=== PATIENT | male | born 1945 | race Caucasian/White ===

== ENCOUNTER 2019-09-17 15:00 | Inpatient (IN) ==
[2019-09-17 16:06] LABS: Alanine Aminotransferase 9 U/L (16-61); Albumin 3.1 G/DL (3.4-5.0); Alkaline Phosphatase 79 U/L (45-117); Aspartate Amino Transferase 10 U/L (0-37); Blood Urea Nitrogen 23 MG/DL (7-18); Calcium 8.6 MG/DL (8.5-10.1); Estimated Glom Filtration Rate 52 ML/MIN; Glucose 108 MG/DL (74-106); Osmolality,Calculated 283.4 MOS/KG (273-304); Total Protein 6.7 G/DL (6.4-8.3); Troponin I < 0.015 NG/ML (0.00-0.045)
[2019-09-17 16:10] LABS: Basophils % 0.4 % (0.0-0.8); Eosinophils # 0.2 10*3/uL (0.0-0.87); Eosinophils % 2.4 % (0.00-10.9); Hematocrit 51.9 VOL% (42.0-52.0); Hemoglobin 13.5 GM/DL (14.0-18.0); Immature Granulocytes % 0.4 %; Immature Granulocytes Absolute 0.04 #; Lymphocytes # 0.7 10*3/uL (1.4-4.0); Mean Corpuscular Volume 81.1 FL (87-102); Mean Platelet Volume 10.7 FL (9.6-12.0); Monocytes % 8.2 % (1.7-12.7); Neutrophils % 81.6 % (38.7-73.9); Platelet Count 168 T/CUMM (130-400)
[2019-09-17] MEDS ORDERED: ONDANSETRON 4 MG/2 ML VIAL IV STA (16:27)
[2019-09-17] MEDS ORDERED: methylPREDNISolone SOD SUC 125 MG/2 ML VIAL IV STA (16:27)
[2019-09-17] MEDS ORDERED: FUROSEMIDE 100 MG/10 ML VIAL IV STA (16:27)
[2019-09-17] MEDS ORDERED: ALBUTEROL NEB SOLN 5 MG/ML 20 ML/BOTTLE RESP TX SCH (16:30)
[2019-09-17] MEDS ORDERED: ACETAMINOPHEN 325 MG TABLET PO PRN (17:23)
[2019-09-17] MEDS ORDERED: MAGNESIUM SULF RIDER 4 GM in PREMIX 1 EACH IV PRN (17:23)
[2019-09-17] MEDS ORDERED: MAGNESIUM SULF RIDER 2 GM in PREMIX 1 EACH IV PRN (17:23)
[2019-09-17] MEDS ORDERED: ONDANSETRON 4 MG/2 ML VIAL IV PRN (17:23)
[2019-09-17] MEDS ORDERED: ALBUTEROL 1.25 MG/3 ML NEB RESP TX PRN (17:27)
[2019-09-17 17:33] LABS: Apearance,Urine CLEAR (Clear); Bilirubin,Urine Negative (Negative); Blood, Urine Negative (Negative); Glucose,Urine (UA) Negative (Negative); Hyaline Casts,Urine 11 /LPF (0-3); Ketones,Urine Negative (Negative); Mucus,Urine Occasional /LPF (Occasional); Nitrite,Urine Negative (Negative); Protein,Urine Negative; Urine Color Yellow (Yellow); Urine Specific Gravity 1.009 (1.001-1.035); Urine Urobilinogen < 2.0 EU/DL (0.2-1.0)
[2019-09-17] MEDS ORDERED: DEXTROSE 10% 250 ML BAG IV PRN (18:36)
[2019-09-17] MEDS ORDERED: GLUCAGON 1 MG VIAL IM PRN (18:36)
[2019-09-17] MEDS: ALBUTEROL/IPRATROPIUM 3 ML NEB RESP TX SCH (20:03)
[2019-09-17] MEDS: cefTRIAXone 1,000 MG in SYRINGE 1 EACH IV SCH (20:54)
[2019-09-17] MEDS: INSULIN REGULAR 100 UNIT/ML SUBCUT SCH (20:55)
[2019-09-17] MEDS: ENOXAPARIN 40 MG/0.4 ML SYRINGE SUBCUT SCH (20:55)
[2019-09-18 07:06] LABS: Basophils % 0.1 % (0.0-0.8); Hematocrit 48.4 VOL% (42.0-52.0); Hemoglobin 12.7 GM/DL (14.0-18.0); Immature Granulocytes % 0.7 %; Immature Granulocytes Absolute 0.06 #; Lymphocytes # 0.3 10*3/uL (1.4-4.0); Lymphocytes % 3.9 % (21.2-54.2); Mean Corpuscular HGB Conc 26.2 GM/DL (32-36); Mean Corpuscular Volume 80.7 FL (87-102); Mean Platelet Volume 11.3 FL (9.6-12.0); Monocytes % 2.9 % (1.7-12.7); NRBC # 0.03 10*3/uL; Neutrophils % 92.4 % (38.7-73.9); Platelet Count 140 T/CUMM (130-400); Red Cell Distribution Width 18.6 % (9.3-17.3); White Blood Count 8.4 T/CUMM (4-12)
[2019-09-18 07:09] LABS: Bilirubin,Total 0.8 MG/DL (0.2-1.0); Calcium 8.5 MG/DL (8.5-10.1); Osmolality,Calculated 283.8 MOS/KG (273-304); Total Protein 6.5 G/DL (6.4-8.3)
[2019-09-18 07:15] LABS: Band Neutrophils 1 % (0-10); Hypochromasia 2+; Lymphocytes 1 % (20-55); Microcytosis 1+; Segmented Neutrophils 92 % (50-85); Total Cells Counted 100
[2019-09-18 07:16] LABS: Anisocytosis 1+; Ovalocytes Few; Platelet Estimate Adequate; Target Cells Slight
[2019-09-18] MEDS: ALBUTEROL/IPRATROPIUM 3 ML NEB RESP TX SCH ×5 (07:33→18:30)
[2019-09-18] MEDS ORDERED: NON-FORMULARY MEDICATION (Albuterol Sulfate [Ventolin Hfa] 2 PUFF) INH PRN (08:33)
[2019-09-18] MEDS: INSULIN REGULAR 100 UNIT/ML SUBCUT SCH ×4 (08:58→22:35)
[2019-09-18] MEDS: predniSONE 20 MG TABLET PO SCH (08:59)
[2019-09-18] MEDS: PANTOPRAZOLE 40 MG TABLET PO SCH (08:59)
[2019-09-18] MEDS ORDERED: NON-FORMULARY MEDICATION (Pantoprazole [Protonix] 40 MG) PO SCH (09:00)
[2019-09-18] MEDS: FUROSEMIDE 40 MG/4 ML VIAL IV SCH ×2 (09:01→17:49)
[2019-09-18 09:22] LABS: Risk Ratio 3.24; VLDL CHOLESTEROL 22.2 MG/DL
[2019-09-18] MEDS: ASPIRIN EC 81 MG TABLET PO SCH (10:13)
[2019-09-18] MEDS: MONTELUKAST 10 MG TABLET PO SCH (10:13)
[2019-09-18] MEDS: buPROPion 75 MG TABLET PO SCH ×2 (10:13→21:46)
[2019-09-18] MEDS: captopriL 25 MG TABLET PO SCH ×2 (12:27→21:42)
[2019-09-18] MEDS: NABUMETONE 500 MG TABLET PO SCH ×2 (12:27→21:44)
[2019-09-18] MEDS: CLOTRIMAZOLE 1% CREAM 15 GM TUBE TOP SCH ×4 (12:28→22:35)
[2019-09-18] MEDS: FOLIC ACID 1 MG TABLET PO SCH (13:42)
[2019-09-18] MEDS: carvediloL 12.5 MG TABLET PO SCH (17:52)
[2019-09-18] MEDS: ARFORMOTEROL 15 MCG/2 ML NEB RESP TX SCH (18:30)
[2019-09-18] MEDS ORDERED: INSULIN GLARGINE 100 UNIT/ML SUBCUT SCH (21:00)
[2019-09-18] MEDS: cefTRIAXone 1,000 MG in SYRINGE 1 EACH IV SCH (21:45)
[2019-09-18] MEDS: ENOXAPARIN 40 MG/0.4 ML SYRINGE SUBCUT SCH (21:45)
[2019-09-19] MEDS ORDERED: LEVOTHYROXINE 75 MCG TABLET PO SCH (06:30)
[2019-09-19] MEDS: ARFORMOTEROL 15 MCG/2 ML NEB RESP TX SCH (07:11)
[2019-09-19] MEDS: ALBUTEROL/IPRATROPIUM 3 ML NEB RESP TX SCH ×3 (07:11→12:49)
[2019-09-19] MEDS: INSULIN REGULAR 100 UNIT/ML SUBCUT SCH ×2 (08:12→11:37)
[2019-09-19] MEDS: FUROSEMIDE 40 MG/4 ML VIAL IV SCH (08:40)
[2019-09-19] MEDS: MONTELUKAST 10 MG TABLET PO SCH (08:40)
[2019-09-19] MEDS: predniSONE 20 MG TABLET PO SCH (08:40)
[2019-09-19] MEDS: carvediloL 12.5 MG TABLET PO SCH (08:40)
[2019-09-19] MEDS: ASPIRIN EC 81 MG TABLET PO SCH (08:40)
[2019-09-19] MEDS: buPROPion 75 MG TABLET PO SCH (08:40)
[2019-09-19] MEDS: PANTOPRAZOLE 40 MG TABLET PO SCH (08:40)
[2019-09-19] MEDS: FOLIC ACID 1 MG TABLET PO SCH (08:40)
[2019-09-19] MEDS: NABUMETONE 500 MG TABLET PO SCH (08:43)
[2019-09-19] MEDS: CLOTRIMAZOLE 1% CREAM 15 GM TUBE TOP SCH (08:43)
[2019-09-19] MEDS: captopriL 25 MG TABLET PO SCH (08:43)
[2019-09-19] MEDS ORDERED: ATORVASTATIN 10 MG TABLET PO SCH (09:00)
[2019-09-19 09:42] LABS: Basophils # 0.1 10*3/uL (0.0-0.2); Basophils % 0.6 % (0.0-0.8); Eosinophils # 0.1 10*3/uL (0.0-0.87); Eosinophils % 0.9 % (0.00-10.9); Hemoglobin 12.1 GM/DL (14.0-18.0); Immature Granulocytes % 0.6 %; Immature Granulocytes Absolute 0.05 #; Lymphocytes # 0.7 10*3/uL (1.4-4.0); Mean Corpuscular HGB Conc 25.7 GM/DL (32-36); Mean Corpuscular Volume 81.7 FL (87-102); Mean Platelet Volume 10.8 FL (9.6-12.0); Monocytes % 10.6 % (1.7-12.7); Neutrophils % 79.3 % (38.7-73.9); Platelet Count 140 T/CUMM (130-400); Red Blood Count 5.75 MC/CUMM (3.8-5.5); Red Cell Distribution Width 18.1 % (9.3-17.3); White Blood Count 8.1 T/CUMM (4-12)
[2019-09-19 09:43] LABS: Calcium 8.7 MG/DL (8.5-10.1); Osmolality,Calculated 288.5 MOS/KG (273-304)
[2019-09-19 09:59] LABS: Anisocytosis Slight; Hypochromasia Slight; Macrocytosis Slight; Platelet Estimate Adequate
[2019-09-19 12:05] VITALS: BP 174/87
== END 2019-09-19 16:30 | disposition home or self-care (01) | DRG 291 ==
LOC: N.ED 15:00 → SUATTDRO 17:23 → N.EDINP 17:23 → N.2E 18:59
PROVIDERS: ADMIT Internal Medicine; ATTEND Family Medicine

== ENCOUNTER 2019-11-27 09:44 | Inpatient (IN) ==
[2019-11-27] MEDS ORDERED: FUROSEMIDE 100 MG/10 ML VIAL IV STA (09:58)
[2019-11-27 10:45] LABS: INR 1.3; PT Patient Result 13.6 SECS (9.8-11.9); Partial Thromboplastin Time 32.8 SECS (23.9-33.8)
[2019-11-27 10:56] LABS: Basophils # 0.1 10*3/uL (0.0-0.2); Basophils % 0.6 % (0.0-0.8); Eosinophils # 0.3 10*3/uL (0.0-0.87); Hematocrit 48.5 VOL% (42.0-52.0); Hemoglobin 12.4 GM/DL (14.0-18.0); Immature Granulocytes % 0.4 %; Immature Granulocytes Absolute 0.04 #; Lymphocytes # 0.7 10*3/uL (1.4-4.0); Mean Corpuscular HGB Conc 25.6 GM/DL (32-36); Mean Corpuscular Volume 80.7 FL (87-102); Mean Platelet Volume 11.1 FL (9.6-12.0); Monocytes % 10.4 % (1.7-12.7); Neutrophils % 78.6 % (38.7-73.9); Platelet Count 146 T/CUMM (130-400); Red Blood Count 6.01 MC/CUMM (3.8-5.5); Red Cell Distribution Width 19.8 % (9.3-17.3); White Blood Count 10.3 T/CUMM (4-12)
[2019-11-27 10:59] LABS: Apearance,Urine CLEAR (Clear); Bilirubin,Urine Negative (Negative); Blood, Urine Negative (Negative); Glucose,Urine (UA) Negative (Negative); Hyaline Casts,Urine 8 /LPF (0-3); Ketones,Urine Negative (Negative); Mucus,Urine Occasional /LPF (Occasional); Nitrite,Urine Negative (Negative); Protein,Urine 30 MG/DL; Squamous Epithelial Cell,Urine Occasional /HPF (0-10); Urine Color Yellow (Yellow); Urine Specific Gravity 1.013 (1.001-1.035); WBC,Urine <1 /HPF (0-6)
[2019-11-27 11:00] LABS: Albumin 3.1 G/DL (3.4-5.0); Bilirubin,Total 0.8 MG/DL (0.2-1.0); Calcium 8.4 MG/DL (8.5-10.1); Osmolality,Calculated 283.1 MOS/KG (273-304); Total Protein 5.9 G/DL (6.4-8.3)
[2019-11-27 11:30] LABS: Hypochromasia 1+
[2019-11-27 11:31] LABS: Platelet Estimate Adequate
[2019-11-27] MEDS ORDERED: DEXTROSE 50% 25 GM/50 ML VIAL IV STA (11:46)
[2019-11-27 11:55] LABS: ABG Base Excess 10.3 MMOL/L (-2.5-2.5); ABG HCO3 39.9 MMOL/L (20-26); ABG Oxygen Saturation 91.2 % (95-100); ABG PH 7.306 (7.35-7.45); ABG PO2 71.2 MM HG (80-95); ABG TCO2 42.5 MMOL/L (23-27); Allen Test Positive
[2019-11-27 11:57] LABS: ABG PCO2 81.9 MM HG (35-48)
[2019-11-27] MEDS ORDERED: DEXTROSE 50% 25 GM/50 ML SYRINGE IV ONE (12:36)
[2019-11-27] MEDS: HYDROXYCHLOROQUINE 200 MG TABLET PO SCH (12:55)
[2019-11-27] MEDS ORDERED: DEXTROSE 50% 25 GM/50 ML VIAL IV PRN (13:08)
[2019-11-27] MEDS ORDERED: GLUCAGON 1 MG VIAL IM PRN (13:08)
[2019-11-27] MEDS ORDERED: LACTULOSE 20 GM/30 ML UDCUP PO PRN (13:25)
[2019-11-27] MEDS ORDERED: DOCUSATE SODIUM 100 MG CAPSULE PO PRN (13:25)
[2019-11-27] MEDS ORDERED: DEXTROSE 10% 250 ML BAG IV PRN (13:41)
[2019-11-27] MEDS ORDERED: Albuterol Sulfate [Ventolin Hfa] 2 PUFF INH PRN (14:01)
[2019-11-27] MEDS: ENOXAPARIN 40 MG/0.4 ML SYRINGE SUBCUT SCH (16:00)
[2019-11-27] MEDS: FUROSEMIDE 40 MG/4 ML VIAL IV SCH (16:00)
[2019-11-27] MEDS: INSULIN LISPRO 100 UNIT/ML SUBCUT SCH ×2 (16:50→21:10)
[2019-11-27] MEDS ORDERED: INSULIN GLARGINE SUBCUT SCH (21:00)
[2019-11-27] MEDS: carvediloL 25 MG TABLET PO SCH (21:10)
[2019-11-27] MEDS: buPROPion 75 MG TABLET PO SCH (21:11)
[2019-11-27] MEDS: NABUMETONE 500 MG TABLET PO SCH (21:11)
[2019-11-27] MEDS: captopriL 25 MG TABLET PO SCH (22:21)
[2019-11-27] MEDS: CLOTRIMAZOLE 1% CREAM 15 GM TUBE TOP SCH (22:22)
[2019-11-28 06:51] LABS: Alanine Aminotransferase < 9 U/L (16-61); Albumin 2.7 G/DL (3.4-5.0); Alkaline Phosphatase 81 U/L (45-117); Aspartate Amino Transferase 8 U/L (0-37); Blood Urea Nitrogen 24 MG/DL (7-18); Estimated Glom Filtration Rate 50 ML/MIN; Glucose 83 MG/DL (74-106); Osmolality,Calculated 279.5 MOS/KG (273-304); Total Protein 5.8 G/DL (6.4-8.3)
[2019-11-28 06:55] LABS: Basophils % 0.4 % (0.0-0.8); Eosinophils # 0.2 10*3/uL (0.0-0.87); Eosinophils % 2.1 % (0.00-10.9); Hematocrit 45.9 VOL% (42.0-52.0); Immature Granulocytes % 0.7 %; Immature Granulocytes Absolute 0.05 #; Lymphocytes # 0.7 10*3/uL (1.4-4.0); Lymphocytes % 9.7 % (21.2-54.2); Mean Corpuscular HGB Conc 25.7 GM/DL (32-36); Mean Corpuscular Volume 80.2 FL (87-102); Monocytes % 11.8 % (1.7-12.7); Neutrophils % 75.3 % (38.7-73.9); Red Blood Count 5.72 MC/CUMM (3.8-5.5); Red Cell Distribution Width 19.4 % (9.3-17.3); White Blood Count 7.2 T/CUMM (4-12)
[2019-11-28 07:00] LABS: Hemoglobin 11.8 GM/DL (14.0-18.0); Platelet Count 107 T/CUMM (130-400)
[2019-11-28 07:01] LABS: Hypochromasia 1+; Ovalocytes Slight; Platelet Estimate Decreased
[2019-11-28] MEDS: ATORVASTATIN 10 MG TABLET PO SCH (09:18)
[2019-11-28] MEDS: ZINC SULFATE 220 MG CAPSULE PO SCH (09:19)
[2019-11-28] MEDS: carvediloL 25 MG TABLET PO SCH ×3 (09:19→20:40)
[2019-11-28] MEDS: NABUMETONE 500 MG TABLET PO SCH ×2 (09:19→20:40)
[2019-11-28] MEDS: PANTOPRAZOLE 40 MG TABLET PO SCH (09:19)
[2019-11-28] MEDS: HYDROXYCHLOROQUINE 200 MG TABLET PO SCH ×2 (09:19→20:40)
[2019-11-28] MEDS: FOLIC ACID 1 MG TABLET PO SCH (09:20)
[2019-11-28] MEDS: MONTELUKAST 10 MG TABLET PO SCH (09:20)
[2019-11-28] MEDS: LEVOTHYROXINE 75 MCG TABLET PO SCH (09:20)
[2019-11-28] MEDS: ASPIRIN EC 81 MG TABLET PO SCH (09:20)
[2019-11-28] MEDS: buPROPion 75 MG TABLET PO SCH ×2 (09:20→20:40)
[2019-11-28] MEDS: captopriL 25 MG TABLET PO SCH ×3 (09:45→20:40)
[2019-11-28] MEDS: FUROSEMIDE 40 MG TABLET PO SCH ×2 (09:47→10:41)
[2019-11-28] MEDS: CLOTRIMAZOLE 1% CREAM 15 GM TUBE TOP SCH ×2 (09:47→20:40)
[2019-11-28] MEDS: FUROSEMIDE 40 MG/4 ML VIAL IV SCH (10:40)
[2019-11-28] MEDS: INSULIN LISPRO 100 UNIT/ML SUBCUT SCH ×4 (10:40→21:36)
[2019-11-28 10:51] LABS: ABG Base Excess 9.9 MMOL/L (-2.5-2.5); ABG Oxygen Saturation 73.5 % (95-100); ABG PH 7.328 (7.35-7.45); ABG PO2 45.1 MM HG (80-95); ABG TCO2 35.2 MMOL/L (23-27); Allen Test Positive; Pt O2 Delivery Device CPAP
[2019-11-28 10:54] LABS: ABG PCO2 75.1 MM HG (35-48)
[2019-11-28] MEDS: ENOXAPARIN 40 MG/0.4 ML SYRINGE SUBCUT SCH (16:05)
[2019-11-29 06:39] LABS: Alanine Aminotransferase < 9 U/L (16-61); Albumin 2.5 G/DL (3.4-5.0); Alkaline Phosphatase 80 U/L (45-117); Aspartate Amino Transferase 10 U/L (0-37); Blood Urea Nitrogen 30 MG/DL (7-18); Calcium 8.4 MG/DL (8.5-10.1); Estimated Glom Filtration Rate 50 ML/MIN; Glucose 112 MG/DL (74-106); Osmolality,Calculated 283.5 MOS/KG (273-304); Total Protein 5.5 G/DL (6.4-8.3)
[2019-11-29 06:55] LABS: Basophils # 0.1 10*3/uL (0.0-0.2); Basophils % 0.6 % (0.0-0.8); Eosinophils # 0.2 10*3/uL (0.0-0.87); Eosinophils % 2.9 % (0.00-10.9); Hematocrit 42.4 VOL% (42.0-52.0); Hemoglobin 11.1 GM/DL (14.0-18.0); Immature Granulocytes % 0.4 %; Immature Granulocytes Absolute 0.03 #; Lymphocytes # 0.6 10*3/uL (1.4-4.0); Lymphocytes % 7.7 % (21.2-54.2); Mean Corpuscular HGB Conc 26.2 GM/DL (32-36); Mean Corpuscular Volume 79.7 FL (87-102); Mean Platelet Volume 11.4 FL (9.6-12.0); Monocytes % 11.4 % (1.7-12.7); Platelet Count 111 T/CUMM (130-400); Red Blood Count 5.32 MC/CUMM (3.8-5.5); Red Cell Distribution Width 19.1 % (9.3-17.3); White Blood Count 7.9 T/CUMM (4-12)
[2019-11-29 07:00] LABS: Anisocytosis 1+; Platelet Estimate Adequate
[2019-11-29 07:01] LABS: Macrocytosis Slight; Polychromasia Slight
[2019-11-29] MEDS: captopriL 25 MG TABLET PO SCH ×2 (09:11→21:36)
[2019-11-29] MEDS: ASPIRIN EC 81 MG TABLET PO SCH (09:11)
[2019-11-29] MEDS: INSULIN LISPRO 100 UNIT/ML SUBCUT SCH ×4 (09:11→21:36)
[2019-11-29] MEDS: FUROSEMIDE 40 MG TABLET PO SCH (09:12)
[2019-11-29] MEDS: NABUMETONE 500 MG TABLET PO SCH ×2 (09:12→20:41)
[2019-11-29] MEDS: carvediloL 25 MG TABLET PO SCH ×2 (09:12→21:36)
[2019-11-29] MEDS: CLOTRIMAZOLE 1% CREAM 15 GM TUBE TOP SCH ×2 (09:12→20:41)
[2019-11-29] MEDS: PANTOPRAZOLE 40 MG TABLET PO SCH (09:12)
[2019-11-29] MEDS: FOLIC ACID 1 MG TABLET PO SCH (09:12)
[2019-11-29] MEDS: MONTELUKAST 10 MG TABLET PO SCH (09:12)
[2019-11-29] MEDS: LEVOTHYROXINE 75 MCG TABLET PO SCH (09:12)
[2019-11-29] MEDS: acetaZOLAMIDE 250 MG TABLET PO SCH (09:12)
[2019-11-29] MEDS: HYDROXYCHLOROQUINE 200 MG TABLET PO SCH ×2 (09:12→20:41)
[2019-11-29] MEDS: buPROPion 75 MG TABLET PO SCH ×2 (09:13→20:41)
[2019-11-29 09:42] LABS: ABG Base Excess 10.4 MMOL/L (-2.5-2.5); ABG HCO3 32.4 MMOL/L (20-26); ABG Oxygen Saturation 21.4 % (95-100); Pt O2 Delivery Device CPAP
[2019-11-29 09:43] LABS: ABG PCO2 80.3 MM HG (35-48); ABG PO2 20.4 MM HG (80-95)
[2019-11-29] MEDS: ENOXAPARIN 40 MG/0.4 ML SYRINGE SUBCUT SCH (15:54)
[2019-11-30 06:46] LABS: Albumin 2.7 G/DL (3.4-5.0); Bilirubin,Total 0.8 MG/DL (0.2-1.0); Calcium 8.3 MG/DL (8.5-10.1); Osmolality,Calculated 282.8 MOS/KG (273-304); Total Protein 5.8 G/DL (6.4-8.3)
[2019-11-30 07:05] LABS: Basophils % 0.5 % (0.0-0.8); Eosinophils # 0.3 10*3/uL (0.0-0.87); Eosinophils % 3.6 % (0.00-10.9); Hematocrit 43.1 VOL% (42.0-52.0); Hemoglobin 11.2 GM/DL (14.0-18.0); Immature Granulocytes % 0.4 %; Immature Granulocytes Absolute 0.03 #; Lymphocytes # 0.8 10*3/uL (1.4-4.0); Mean Corpuscular Volume 79.5 FL (87-102); Mean Platelet Volume 11.1 FL (9.6-12.0); Monocytes % 12.6 % (1.7-12.7); Neutrophils % 72.9 % (38.7-73.9); Platelet Count 118 T/CUMM (130-400); Red Blood Count 5.42 MC/CUMM (3.8-5.5); Red Cell Distribution Width 19.4 % (9.3-17.3); White Blood Count 7.7 T/CUMM (4-12)
[2019-11-30 07:15] LABS: Hypochromasia 1+; Macrocytosis Slight; Ovalocytes Slight; Platelet Estimate Decreased
[2019-11-30] MEDS: captopriL 25 MG TABLET PO SCH (09:29)
[2019-11-30] MEDS: FOLIC ACID 1 MG TABLET PO SCH (09:29)
[2019-11-30] MEDS: ASPIRIN EC 81 MG TABLET PO SCH (09:29)
[2019-11-30] MEDS: ATORVASTATIN 10 MG TABLET PO SCH (09:29)
[2019-11-30] MEDS: carvediloL 25 MG TABLET PO SCH (09:29)
[2019-11-30] MEDS: acetaZOLAMIDE 250 MG TABLET PO SCH (09:29)
[2019-11-30] MEDS: FUROSEMIDE 40 MG TABLET PO SCH (09:29)
[2019-11-30] MEDS: NABUMETONE 500 MG TABLET PO SCH (09:30)
[2019-11-30] MEDS: LEVOTHYROXINE 75 MCG TABLET PO SCH (09:30)
[2019-11-30] MEDS: MONTELUKAST 10 MG TABLET PO SCH (09:30)
[2019-11-30] MEDS: HYDROXYCHLOROQUINE 200 MG TABLET PO SCH (09:30)
[2019-11-30] MEDS: PANTOPRAZOLE 40 MG TABLET PO SCH (09:30)
[2019-11-30] MEDS: buPROPion 75 MG TABLET PO SCH (09:30)
[2019-11-30] MEDS: ZINC SULFATE 220 MG CAPSULE PO SCH (09:30)
[2019-11-30] MEDS: INSULIN LISPRO 100 UNIT/ML SUBCUT SCH ×2 (10:28→12:45)
[2019-11-30] MEDS: CLOTRIMAZOLE 1% CREAM 15 GM TUBE TOP SCH (10:38)
[2019-11-30 12:47] VITALS: BP 122/82
== END 2019-11-30 13:56 | disposition home or self-care (01) | DRG 291 ==
LOC: N.ED 09:44 → N.EDINP 12:05 → N.2E 12:32
PROVIDERS: ADMIT Family Medicine; ATTEND Family Medicine